=== PATIENT | female | born 1930 | race Caucasian/White ===

== ENCOUNTER 2017-01-07 16:49 | Inpatient (IN) ==
[2017-01-07] MEDS ORDERED: ALBUTEROL 2.5 MG/3 ML NEB RESP TX STA (17:17)
[2017-01-07] MEDS ORDERED: PANTOPRAZOLE 40 MG VIAL IV STA (17:19)
[2017-01-07] MEDS ORDERED: FUROSEMIDE 100 MG/10 ML VIAL IV STA (17:19)
[2017-01-07] MEDS ORDERED: methylPREDNISolone SOD SUC 125 MG/2 ML VIAL IV STA (17:19)
[2017-01-07] MEDS ORDERED: CLINDAMYCIN INJ 600 MG in PREMIX 1 EACH IV STA ×2 (17:19→18:36)
[2017-01-07] MEDS ORDERED: SODIUM CHLORIDE 0.9% 500 ML IV STA (17:19)
[2017-01-07] MEDS ORDERED: ONDANSETRON 4 MG/2 ML VIAL IV STA (17:19)
[2017-01-07 17:27] LABS: Basophils # 0.1 10*3/uL (0.0-0.2); Basophils % 0.9 % (0.0-0.8); Eosinophils # 0.7 10*3/uL (0.0-0.87); Eosinophils % 8.2 % (0.00-10.9); Hematocrit 37.9 VOL% (35.7-47.0); Hemoglobin 11.7 GM/DL (12.0-16.0); Immature Granulocytes % 0.7 %; Immature Granulocytes Absolute 0.06 #; Lymphocytes # 3.8 10*3/uL (1.4-4.0); Lymphocytes % 46.4 % (21.3-54.2); Mean Corpuscular HGB Conc 30.9 GM/DL (32-36); Mean Corpuscular Hemoglobin 30 PG (27-34); Mean Corpuscular Volume 96.4 FL (87-102); Mean Platelet Volume 11.5 FL (9.6-12.0); Monocytes # 0.4 10*3/uL (0.11-0.8); Monocytes % 4.8 % (1.7-12.7); Neutrophils # 3.2 10*3/uL (1.4-7.4); Platelet Count 268 T/CUMM (130-400); Red Blood Count 3.93 MC/CUMM (3.8-5.5); Red Cell Distribution Width 13.8 % (9.3-17.3); White Blood Count 8.1 T/CUMM (4-12)
[2017-01-07] MEDS ORDERED: ALBUTEROL 2.5 MG/3 ML NEB RESP TX SCH (17:30)
[2017-01-07 17:32] LABS: Allen Test Positive
[2017-01-07 17:33] LABS: PT Patient Result 10.8 SECS
[2017-01-07 17:35] LABS: ABG Base Excess -5.2 MMOL/L (-2.5-2.5); ABG HCO3 20.1 MMOL/L (20-26); ABG Oxygen Saturation 98.9 % (95-100); ABG TCO2 27.3 MMOL/L (23-27)
[2017-01-07 17:44] LABS: Alanine Aminotransferase 46 U/L (13-56); Albumin 3.3 G/DL (3.4-5.0); Alkaline Phosphatase 117 U/L (45-117); Aspartate Amino Transferase 96 U/L (0-37); Bilirubin,Total < 0.39 MG/DL (0.2-1.0); Blood Urea Nitrogen 20 MG/DL (7-18); Glucose 234 MG/DL (74-106); Magnesium 2.2 MG/DL (1.8-2.4); Osmolality,Calculated 291.3 MOS/KG (273-304); Potassium 5.4 MMOL/L (3.5-5.1); Sodium 141 MMOL/L (136-145); Total Protein 6.9 G/DL (6.4-8.3)
[2017-01-07 17:46] LABS: Troponin I Only 0.048 NG/ML (0.00-0.045)
[2017-01-07 17:49] LABS: ABG PH 7.063 (7.35-7.45)
[2017-01-07] MEDS ORDERED: SODIUM BICARBONATE 50 MEQ/50 ML VIAL IV STA (17:49)
[2017-01-07] MEDS ORDERED: SODIUM BICARBONATE 50 MEQ/50 ML SYRINGE IV ONE (17:53)
[2017-01-07] MEDS ORDERED: PANTOPRAZOLE 40 MG VIAL IV ONE (18:05)
[2017-01-07] MEDS ORDERED: FUROSEMIDE 40 MG/4 ML VIAL ONE (18:05)
[2017-01-07] MEDS ORDERED: MORPHINE 2 MG/1 ML SYRINGE IV PRN (18:20)
[2017-01-07] MEDS ORDERED: ACETAMINOPHEN 325 MG TABLET PO PRN (18:20)
[2017-01-07] MEDS ORDERED: ONDANSETRON 4 MG/2 ML VIAL IV PRN (18:20)
[2017-01-07 20:11] LABS: Apearance,Urine Slightly Hazy (Clear); Bilirubin,Urine Negative (Negative); Blood, Urine Small mg/dL (Negative); Glucose,Urine (UA) 50 mg/dL (Negative); Hyaline Casts,Urine 4 /LPF (0-3); Ketones,Urine Negative (Negative); Mucus,Urine Occasional /LPF (Occasional); Nitrite,Urine Negative (Negative); Protein,Urine 100 MG/DL; RBC,Urine 4 /HPF (0-4); Squamous Epithelial Cell,Urine Occasional /HPF (0-10); Urine Color Yellow (Yellow); Urine Specific Gravity 1.013 (1.001-1.035); Urine Urobilinogen < 2.0 EU/DL (0.2-1.0); WBC,Urine 12 /HPF (0-6)
[2017-01-07] MEDS: BUDESONIDE 0.5 MG/2 ML NEB RESP TX SCH (21:00)
[2017-01-07] MEDS ORDERED: LEVOFLOXACIN INJ 500 MG in PREMIX 1 EACH IV ONE (21:00)
[2017-01-07] MEDS: ALBUTEROL/IPRATROPIUM 3 ML NEB RESP TX SCH (21:00)
[2017-01-07] MEDS: SODIUM CHLORIDE 0.9% 1,000 ML IV SCH (21:06)
[2017-01-07] MEDS: VANCOMYCIN INJ 1,000 MG in SODIUM CHLORIDE 0.9% 250 ML IV SCH (21:07)
[2017-01-08] MEDS: ALBUTEROL 1.25 MG/3 ML NEB RESP TX SCH ×2 (00:43→07:49)
[2017-01-08] MEDS: ALBUTEROL/IPRATROPIUM 3 ML NEB RESP TX SCH ×4 (00:44→19:11)
[2017-01-08] MEDS: CLINDAMYCIN INJ 600 MG in PREMIX 1 EACH IV SCH ×4 (03:26→21:20)
[2017-01-08] MEDS ORDERED: INFLUENZA VIRUS VACCINE 0.5 ML SYRINGE IM ONE (05:47)
[2017-01-08] MEDS: BUDESONIDE 0.5 MG/2 ML NEB RESP TX SCH ×2 (07:07→19:12)
[2017-01-08] MEDS: LORazepam 2 MG/1 ML VIAL IV PRN (10:01)
[2017-01-08] MEDS: VANCOMYCIN INJ 1,000 MG in SODIUM CHLORIDE 0.9% 250 ML IV SCH (10:09)
[2017-01-08] MEDS ORDERED: ALBUTEROL/IPRATROPIUM 3 ML NEB RESP TX ONE (11:35)
[2017-01-08] MEDS ORDERED: MORPHINE 2 MG/1 ML SYRINGE IV PRN (11:46)
[2017-01-08] MEDS: MORPHINE 2 MG/1 ML SYRINGE IV PRN ×2 (12:00→12:25)
[2017-01-08] MEDS ORDERED: ACETAMINOPHEN 500 MG TABLET PO PRN (14:10)
[2017-01-08] MEDS: ALPRAZolam 0.5 MG TABLET PO PRN (16:24)
[2017-01-08] MEDS: DORZOLAMIDE 2% OPH SOLN 10 ML BOTTLE BOTH EYES SCH (21:25)
[2017-01-08] MEDS: LEVOFLOXACIN INJ 250 MG in PREMIX 1 EACH IV SCH (22:55)
[2017-01-08] MEDS: SODIUM CHLORIDE 0.9% 1,000 ML IV SCH ×2 (22:55→23:10)
[2017-01-09] MEDS: ALBUTEROL/IPRATROPIUM 3 ML NEB RESP TX SCH ×4 (00:59→19:20)
[2017-01-09] MEDS: BUDESONIDE 0.5 MG/2 ML NEB RESP TX SCH ×2 (07:11→19:21)
[2017-01-09] MEDS ORDERED: NON-FORMULARY MEDICATION (Umeclidinium Brm/Vilanterol Tr [Anoro Ellipta] 1 PUFF) INH SCH (09:00)
[2017-01-09] MEDS ORDERED: CHLORPHENIRAMINE MALEATE PO SCH (09:00)
[2017-01-09 09:55] LABS: Calcium 7.6 MG/DL (8.5-10.1); Magnesium 1.7 MG/DL (1.8-2.4); Osmolality,Calculated 291.8 MOS/KG (273-304); Potassium 3.6 MMOL/L (3.5-5.1)
[2017-01-09 10:01] LABS: Basophils % 0.4 % (0.0-0.8); Eosinophils % 0.2 % (0.00-10.9); Hematocrit 30.6 VOL% (35.7-47.0); Hemoglobin 9.8 GM/DL (12.0-16.0); Immature Granulocytes % 0.4 %; Immature Granulocytes Absolute 0.04 #; Lymphocytes # 1.6 10*3/uL (1.4-4.0); Mean Corpuscular Hemoglobin 31 PG (27-34); Mean Corpuscular Volume 95.3 FL (87-102); Mean Platelet Volume 11.5 FL (9.6-12.0); Monocytes # 0.9 10*3/uL (0.11-0.8); Monocytes % 8.8 % (1.7-12.7); Neutrophils # 7.1 10*3/uL (1.4-7.4); Neutrophils % 73.2 % (38.7-73.9); Platelet Count 171 T/CUMM (130-400); Red Blood Count 3.21 MC/CUMM (3.8-5.5); Red Cell Distribution Width 14.1 % (9.3-17.3); White Blood Count 9.7 T/CUMM (4-12)
[2017-01-09 10:04] LABS: ABG Base Excess 6.2 MMOL/L (-2.5-2.5); ABG Oxygen Saturation 96.4 % (95-100); ABG PCO2 51.4 MM HG (35-48); ABG PH 7.402 (7.35-7.45); ABG PO2 78.2 MM HG (80-95); ABG TCO2 29.5 MMOL/L (23-27)
[2017-01-09] MEDS: CLINDAMYCIN INJ 600 MG in PREMIX 1 EACH IV SCH ×3 (10:29→23:26)
[2017-01-09] MEDS: CALCIUM (CARBONATE)/VITAMIN D 600 MG-400 UNIT TABLET PO SCH (10:29)
[2017-01-09] MEDS: FLUTICASONE 50 MCG NASAL SPRAY 16 GM BOTTLE BOTH NARES SCH (10:30)
[2017-01-09] MEDS: BISACODYL 5 MG TABLET PO SCH (10:30)
[2017-01-09] MEDS: MULTIVITAMIN (CENTRUM) TABLET PO SCH (10:30)
[2017-01-09] MEDS: MONTELUKAST 10 MG TABLET PO SCH (10:30)
[2017-01-09] MEDS: CITALOPRAM 20 MG TABLET PO SCH (10:30)
[2017-01-09] MEDS: LORATADINE 10 MG TABLET PO SCH (10:30)
[2017-01-09] MEDS: SODIUM CHLORIDE 0.9% 1,000 ML IV SCH (10:31)
[2017-01-09] MEDS: DORZOLAMIDE 2% OPH SOLN 10 ML BOTTLE BOTH EYES SCH ×2 (10:31→22:02)
[2017-01-09] MEDS: LORazepam 2 MG/1 ML VIAL IV PRN ×2 (14:05→17:35)
[2017-01-09] MEDS: methylPREDNISolone SOD SUC 40 MG/1 ML VIAL IV SCH (15:21)
[2017-01-09] MEDS ORDERED: VANCOMYCIN INJ 1,000 MG in SODIUM CHLORIDE 0.9% 250 ML IV SCH (16:00)
[2017-01-09] MEDS: LEVOFLOXACIN INJ 250 MG in PREMIX 1 EACH IV SCH (22:01)
[2017-01-09] MEDS: ACETAMINOPHEN 325 MG TABLET PO PRN (22:38)
[2017-01-10] MEDS: ALBUTEROL/IPRATROPIUM 3 ML NEB RESP TX SCH ×4 (00:11→19:35)
[2017-01-10] MEDS: SODIUM CHLORIDE 0.9% 1,000 ML IV SCH (00:24)
[2017-01-10] MEDS: methylPREDNISolone SOD SUC 40 MG/1 ML VIAL IV SCH ×3 (00:53→16:35)
[2017-01-10] MEDS: LORazepam 2 MG/1 ML VIAL IV PRN ×2 (07:26→21:44)
[2017-01-10] MEDS: CLINDAMYCIN INJ 600 MG in PREMIX 1 EACH IV SCH ×2 (07:49→16:39)
[2017-01-10] MEDS: BUDESONIDE 0.5 MG/2 ML NEB RESP TX SCH ×2 (08:01→19:35)
[2017-01-10] MEDS: CITALOPRAM 20 MG TABLET PO SCH (09:15)
[2017-01-10] MEDS: MULTIVITAMIN (CENTRUM) TABLET PO SCH (09:15)
[2017-01-10] MEDS: MONTELUKAST 10 MG TABLET PO SCH (09:15)
[2017-01-10] MEDS: BISACODYL 5 MG TABLET PO SCH (09:15)
[2017-01-10] MEDS: LORATADINE 10 MG TABLET PO SCH (09:16)
[2017-01-10] MEDS: DORZOLAMIDE 2% OPH SOLN 10 ML BOTTLE BOTH EYES SCH ×2 (09:17→21:54)
[2017-01-10] MEDS: FLUTICASONE 50 MCG NASAL SPRAY 16 GM BOTTLE BOTH NARES SCH (09:17)
[2017-01-10] MEDS: CALCIUM (CARBONATE)/VITAMIN D 600 MG-400 UNIT TABLET PO SCH (09:17)
[2017-01-10] MEDS: ACETAMINOPHEN 325 MG TABLET PO PRN ×2 (14:01→21:48)
[2017-01-10] MEDS: LEVOFLOXACIN INJ 250 MG in PREMIX 1 EACH IV SCH (21:50)
[2017-01-11] MEDS: ALBUTEROL/IPRATROPIUM 3 ML NEB RESP TX SCH ×6 (00:43→23:48)
[2017-01-11] MEDS: CLINDAMYCIN INJ 600 MG in PREMIX 1 EACH IV SCH ×3 (01:47→16:17)
[2017-01-11] MEDS: methylPREDNISolone SOD SUC 40 MG/1 ML VIAL IV SCH ×3 (01:49→16:16)
[2017-01-11] MEDS: LORazepam 2 MG/1 ML VIAL IV PRN ×3 (01:51→16:33)
[2017-01-11] MEDS: BUDESONIDE 0.5 MG/2 ML NEB RESP TX SCH ×2 (07:38→19:51)
[2017-01-11] MEDS: BISACODYL 5 MG TABLET PO SCH (10:02)
[2017-01-11] MEDS: CITALOPRAM 20 MG TABLET PO SCH (10:02)
[2017-01-11] MEDS: CALCIUM (CARBONATE)/VITAMIN D 600 MG-400 UNIT TABLET PO SCH (10:02)
[2017-01-11] MEDS: MULTIVITAMIN (CENTRUM) TABLET PO SCH (10:03)
[2017-01-11] MEDS: MONTELUKAST 10 MG TABLET PO SCH (10:03)
[2017-01-11] MEDS: LORATADINE 10 MG TABLET PO SCH (10:03)
[2017-01-11] MEDS: DORZOLAMIDE 2% OPH SOLN 10 ML BOTTLE BOTH EYES SCH ×2 (10:12→23:13)
[2017-01-11] MEDS: FLUTICASONE 50 MCG NASAL SPRAY 16 GM BOTTLE BOTH NARES SCH (10:12)
[2017-01-11] MEDS: THEOPHYLLINE ER (24 HR) 400 MG CAPSULE PO SCH (14:17)
[2017-01-11] MEDS: LEVOFLOXACIN INJ 250 MG in PREMIX 1 EACH IV SCH (23:13)
[2017-01-12] MEDS: methylPREDNISolone SOD SUC 40 MG/1 ML VIAL IV SCH ×3 (00:49→18:27)
[2017-01-12] MEDS: CLINDAMYCIN INJ 600 MG in PREMIX 1 EACH IV SCH ×3 (00:50→16:42)
[2017-01-12] MEDS: ALBUTEROL/IPRATROPIUM 3 ML NEB RESP TX SCH ×6 (02:36→23:34)
[2017-01-12] MEDS: BUDESONIDE 0.5 MG/2 ML NEB RESP TX SCH ×2 (07:37→19:32)
[2017-01-12] MEDS ORDERED: TUBERCULIN SKIN TEST 0.1 ML SYRINGE INTRADERM ONE (10:00)
[2017-01-12] MEDS: CALCIUM (CARBONATE)/VITAMIN D 600 MG-400 UNIT TABLET PO SCH (10:16)
[2017-01-12] MEDS: MULTIVITAMIN (CENTRUM) TABLET PO SCH (10:16)
[2017-01-12] MEDS: THEOPHYLLINE ER (24 HR) 400 MG CAPSULE PO SCH (10:16)
[2017-01-12] MEDS: MONTELUKAST 10 MG TABLET PO SCH (10:16)
[2017-01-12] MEDS: LORATADINE 10 MG TABLET PO SCH (10:16)
[2017-01-12] MEDS: CITALOPRAM 20 MG TABLET PO SCH (10:16)
[2017-01-12] MEDS: FLUTICASONE 50 MCG NASAL SPRAY 16 GM BOTTLE BOTH NARES SCH (10:17)
[2017-01-12] MEDS: BISACODYL 5 MG TABLET PO SCH (10:17)
[2017-01-12] MEDS: DORZOLAMIDE 2% OPH SOLN 10 ML BOTTLE BOTH EYES SCH ×2 (10:17→20:26)
[2017-01-12] MEDS: LEVOFLOXACIN 500 MG TABLET PO SCH (15:49)
[2017-01-12] MEDS: ALPRAZolam 0.5 MG TABLET PO PRN (20:27)
[2017-01-12] MEDS: diphenhydrAMINE CAP 25 MG CAPSULE PO PRN (23:40)
[2017-01-13] MEDS: ALBUTEROL/IPRATROPIUM 3 ML NEB RESP TX SCH ×6 (03:04→23:07)
[2017-01-13] MEDS: CLINDAMYCIN 300 MG CAPSULE PO SCH ×4 (06:10→21:31)
[2017-01-13] MEDS: ALPRAZolam 0.5 MG TABLET PO PRN ×3 (06:42→20:58)
[2017-01-13] MEDS: BUDESONIDE 0.5 MG/2 ML NEB RESP TX SCH ×2 (07:13→19:04)
[2017-01-13] MEDS ORDERED: SODIUM PHOSPHATE ENEMA 133 ML BOTTLE RECTAL PRN (09:05)
[2017-01-13] MEDS: predniSONE 20 MG TABLET PO SCH (10:38)
[2017-01-13] MEDS: MONTELUKAST 10 MG TABLET PO SCH (10:38)
[2017-01-13] MEDS: CALCIUM (CARBONATE)/VITAMIN D 600 MG-400 UNIT TABLET PO SCH (10:38)
[2017-01-13] MEDS: DORZOLAMIDE 2% OPH SOLN 10 ML BOTTLE BOTH EYES SCH ×2 (10:39→20:58)
[2017-01-13] MEDS: THEOPHYLLINE ER (24 HR) 400 MG CAPSULE PO SCH (10:39)
[2017-01-13] MEDS: LORATADINE 10 MG TABLET PO SCH (10:39)
[2017-01-13] MEDS: FLUTICASONE 50 MCG NASAL SPRAY 16 GM BOTTLE BOTH NARES SCH (10:39)
[2017-01-13] MEDS: BISACODYL 5 MG TABLET PO SCH (10:39)
[2017-01-13] MEDS: MULTIVITAMIN (CENTRUM) TABLET PO SCH (10:39)
[2017-01-13] MEDS: LEVOFLOXACIN 500 MG TABLET PO SCH (10:39)
[2017-01-13] MEDS: CITALOPRAM 20 MG TABLET PO SCH (10:39)
[2017-01-13] MEDS ORDERED: MAGNESIUM HYDROXIDE SUSP 30 ML UDCUP PO PRN (11:33)
[2017-01-13] MEDS ORDERED: BISACODYL 10 MG SUPP RECTAL PRN (11:33)
[2017-01-13] MEDS ORDERED: BISACODYL 10 MG SUPP RECTAL ONE (12:00)
[2017-01-13] MEDS: diphenhydrAMINE CAP 25 MG CAPSULE PO PRN (20:58)
[2017-01-14] MEDS: ALBUTEROL/IPRATROPIUM 3 ML NEB RESP TX SCH ×6 (03:35→23:26)
[2017-01-14] MEDS: BUDESONIDE 0.5 MG/2 ML NEB RESP TX SCH ×2 (06:50→19:22)
[2017-01-14 07:58] LABS: Calcium 8.3 MG/DL (8.5-10.1); Potassium 3.5 MMOL/L (3.5-5.1)
[2017-01-14] MEDS: BISACODYL 5 MG TABLET PO SCH (08:54)
[2017-01-14] MEDS: ACETAMINOPHEN 325 MG TABLET PO PRN (08:55)
[2017-01-14] MEDS: predniSONE 20 MG TABLET PO SCH (08:55)
[2017-01-14] MEDS: CITALOPRAM 20 MG TABLET PO SCH (08:55)
[2017-01-14] MEDS: THEOPHYLLINE ER (24 HR) 400 MG CAPSULE PO SCH (08:55)
[2017-01-14] MEDS: LORATADINE 10 MG TABLET PO SCH (08:55)
[2017-01-14] MEDS: CLINDAMYCIN 300 MG CAPSULE PO SCH ×3 (08:55→21:30)
[2017-01-14] MEDS: MULTIVITAMIN (CENTRUM) TABLET PO SCH (08:55)
[2017-01-14] MEDS: CALCIUM (CARBONATE)/VITAMIN D 600 MG-400 UNIT TABLET PO SCH (08:55)
[2017-01-14] MEDS: MONTELUKAST 10 MG TABLET PO SCH (08:56)
[2017-01-14] MEDS: LEVOFLOXACIN 500 MG TABLET PO SCH (08:56)
[2017-01-14] MEDS: FLUTICASONE 50 MCG NASAL SPRAY 16 GM BOTTLE BOTH NARES SCH (09:02)
[2017-01-14] MEDS: DORZOLAMIDE 2% OPH SOLN 10 ML BOTTLE BOTH EYES SCH ×2 (09:02→20:58)
[2017-01-14] MEDS ORDERED: FUROSEMIDE 20 MG/2 ML VIAL IV ONE (12:27)
[2017-01-14] MEDS ORDERED: FUROSEMIDE 20 MG TABLET PO ONE (16:19)
[2017-01-14] MEDS: diphenhydrAMINE CAP 25 MG CAPSULE PO PRN (20:57)
[2017-01-14] MEDS: ALPRAZolam 0.5 MG TABLET PO PRN (20:58)
[2017-01-15] MEDS: ALBUTEROL/IPRATROPIUM 3 ML NEB RESP TX SCH ×3 (03:36→10:43)
[2017-01-15 04:40] LABS: Magnesium 1.9 MG/DL (1.8-2.4); Osmolality,Calculated 285.1 MOS/KG (273-304); Potassium 3.4 MMOL/L (3.5-5.1)
[2017-01-15] MEDS: CLINDAMYCIN 300 MG CAPSULE PO SCH (07:08)
[2017-01-15] MEDS: BUDESONIDE 0.5 MG/2 ML NEB RESP TX SCH (07:10)
[2017-01-15] MEDS ORDERED: FLUCONAZOLE 100 MG TABLET PO SCH (07:30)
[2017-01-15] MEDS: LEVOFLOXACIN 500 MG TABLET PO SCH (09:08)
[2017-01-15] MEDS: predniSONE 20 MG TABLET PO SCH (09:08)
[2017-01-15] MEDS: LORATADINE 10 MG TABLET PO SCH (09:08)
[2017-01-15] MEDS: MONTELUKAST 10 MG TABLET PO SCH (09:08)
[2017-01-15] MEDS: BISACODYL 5 MG TABLET PO SCH (09:08)
[2017-01-15] MEDS: CITALOPRAM 20 MG TABLET PO SCH (09:08)
[2017-01-15] MEDS: CALCIUM (CARBONATE)/VITAMIN D 600 MG-400 UNIT TABLET PO SCH (09:08)
[2017-01-15] MEDS: MULTIVITAMIN (CENTRUM) TABLET PO SCH (09:08)
[2017-01-15] MEDS: FLUTICASONE 50 MCG NASAL SPRAY 16 GM BOTTLE BOTH NARES SCH (09:09)
[2017-01-15] MEDS: THEOPHYLLINE ER (24 HR) 400 MG CAPSULE PO SCH (09:09)
[2017-01-15] MEDS: DORZOLAMIDE 2% OPH SOLN 10 ML BOTTLE BOTH EYES SCH (09:15)
[2017-01-15 12:10] VITALS: BP 114/53
== END 2017-01-15 15:01 | DRG 189 ==
LOC: EDBD → EDUNIT# → N.ED 16:49 → N.EDINP 17:52 → SUATTDRO 17:52 → N.2E 19:06
PROVIDERS: ADMIT Family Medicine; ATTEND Hospitalist

== ENCOUNTER 2018-02-07 06:00 | Inpatient (IN) ==
[2018-02-07] MEDS ORDERED: methylPREDNISolone SOD SUC 125 MG/2 ML VIAL IV STA (06:19)
[2018-02-07] MEDS ORDERED: ALBUTEROL 2.5 MG/3 ML NEB RESP TX STA ×2 (06:20→07:37)
[2018-02-07 06:31] LABS: Basophils # 0.1 10*3/uL (0.0-0.2); Basophils % 0.7 % (0.0-0.8); Eosinophils # 0.5 10*3/uL (0.0-0.87); Eosinophils % 7.1 % (0.00-10.9); Hematocrit 33.8 VOL% (35.7-47.0); Immature Granulocytes % 0.3 %; Immature Granulocytes Absolute 0.02 #; Lymphocytes # 1.1 10*3/uL (1.4-4.0); Mean Corpuscular HGB Conc 29.6 GM/DL (32-36); Mean Corpuscular Hemoglobin 29 PG (27-34); Mean Corpuscular Volume 96.8 FL (87-102); Mean Platelet Volume 11.1 FL (9.6-12.0); Monocytes # 0.4 10*3/uL (0.11-0.8); Neutrophils # 5.2 10*3/uL (1.4-7.4); Neutrophils % 70.9 % (38.7-73.9); Platelet Count 206 T/CUMM (130-400); Red Blood Count 3.49 MC/CUMM (3.8-5.5); Red Cell Distribution Width 14.2 % (9.3-17.3); White Blood Count 7.3 T/CUMM (4-12)
[2018-02-07 06:59] LABS: Albumin 3.3 G/DL (3.4-5.0); Bilirubin,Total 0.5 MG/DL (0.2-1.0); Calcium 8.5 MG/DL (8.5-10.1); Osmolality,Calculated 289.8 MOS/KG (273-304); Potassium 4.1 MMOL/L (3.5-5.1); Total Protein 7.3 G/DL (6.4-8.3)
[2018-02-07 08:42] LABS: Apearance,Urine Clear (Clear); Bilirubin,Urine Negative (Negative); Glucose,Urine (UA) Negative (Negative); Ketones,Urine Negative (Negative); Nitrite,Urine Negative (Negative); Protein,Urine Negative; Urine Color Yellow (Yellow)
[2018-02-07 08:43] LABS: Blood, Urine Negative (Negative); Urine Urobilinogen < 2.0 EU/DL (0.2-1.0)
[2018-02-07 08:44] LABS: Hyaline Casts,Urine 1 /LPF (0-3); RBC,Urine <1 /HPF (0-4); WBC,Urine <1 /HPF (0-6)
[2018-02-07] MEDS ORDERED: BISACODYL 5 MG TABLET PO PRN (09:28)
[2018-02-07] MEDS ORDERED: ONDANSETRON 4 MG/2 ML VIAL IV PRN (09:28)
[2018-02-07] MEDS ORDERED: LACTULOSE 20 GM/30 ML UDCUP PO PRN (09:28)
[2018-02-07] MEDS: DOXYCYCLINE HYCLATE 100 MG CAPSULE PO SCH ×2 (12:00→21:01)
[2018-02-07] MEDS ORDERED: ALBUTEROL/IPRATROPIUM 3 ML NEB RESP TX SCH (13:00)
[2018-02-07] MEDS: methylPREDNISolone SOD SUC 40 MG/1 ML VIAL IV SCH ×2 (14:36→23:22)
[2018-02-07] MEDS: ACETAMINOPHEN 325 MG TABLET PO PRN ×2 (14:36→21:00)
[2018-02-07] MEDS ORDERED: KETOROLAC 10 MG TABLET PO PRN (15:28)
[2018-02-07] MEDS ORDERED: MAGNESIUM HYDROXIDE SUSP 30 ML UDCUP PO PRN (15:28)
[2018-02-07] MEDS ORDERED: METHOCARBAMOL 500 MG TABLET PO PRN (15:28)
[2018-02-07] MEDS ORDERED: ONDANSETRON 4 MG TABLET PO SCH (15:30)
[2018-02-07] MEDS: ALPRAZolam 0.5 MG TABLET PO PRN (16:14)
[2018-02-07] MEDS: ALBUTEROL/IPRATROPIUM 3 ML NEB RESP TX PRN (16:54)
[2018-02-07] MEDS: ALBUTEROL/IPRATROPIUM 3 ML NEB RESP TX SCH (19:25)
[2018-02-07] MEDS: BUDESONIDE 0.5 MG/2 ML NEB RESP TX SCH (19:25)
[2018-02-07] MEDS ORDERED: DORZOLAMIDE 2% OPH SOLN 10 ML BOTTLE BOTH EYES SCH (21:00)
[2018-02-07] MEDS: traZODone 50 MG TABLET PO SCH (21:00)
[2018-02-07] MEDS: LACTULOSE 20 GM/30 ML UDCUP PO SCH (21:01)
[2018-02-08] MEDS: ALPRAZolam 0.5 MG TABLET PO PRN ×3 (00:47→21:08)
[2018-02-08] MEDS: ALBUTEROL/IPRATROPIUM 3 ML NEB RESP TX SCH ×4 (00:56→20:55)
[2018-02-08] MEDS: ACETAMINOPHEN 325 MG TABLET PO PRN ×3 (05:23→18:02)
[2018-02-08] MEDS: ALBUTEROL/IPRATROPIUM 3 ML NEB RESP TX PRN (05:25)
[2018-02-08 06:10] LABS: Calcium 8.7 MG/DL (8.5-10.1); Osmolality,Calculated 289.1 MOS/KG (273-304); Potassium 4.4 MMOL/L (3.5-5.1)
[2018-02-08] MEDS: methylPREDNISolone SOD SUC 40 MG/1 ML VIAL IV SCH ×2 (06:24→20:27)
[2018-02-08] MEDS: BUDESONIDE 0.5 MG/2 ML NEB RESP TX SCH ×2 (07:00→20:55)
[2018-02-08 07:11] LABS: Basophils % 0.2 % (0.0-0.8); Hemoglobin 9.3 GM/DL (12.0-16.0); Immature Granulocytes % 0.4 %; Immature Granulocytes Absolute 0.02 #; Lymphocytes # 0.6 10*3/uL (1.4-4.0); Lymphocytes % 10.6 % (21.3-54.2); Mean Corpuscular Hemoglobin 28 PG (27-34); Mean Corpuscular Volume 94.8 FL (87-102); Mean Platelet Volume 11.2 FL (9.6-12.0); Monocytes # 0.1 10*3/uL (0.11-0.8); Monocytes % 1.8 % (1.7-12.7); Neutrophils # 4.9 10*3/uL (1.4-7.4); Platelet Count 210 T/CUMM (130-400); Red Blood Count 3.27 MC/CUMM (3.8-5.5); Red Cell Distribution Width 14.1 % (9.3-17.3); White Blood Count 5.6 T/CUMM (4-12)
[2018-02-08] MEDS: PARoxetine 20 MG TABLET PO SCH (08:36)
[2018-02-08] MEDS: CALCIUM (CARBONATE)/VITAMIN D 600 MG-400 UNIT TABLET PO SCH (08:36)
[2018-02-08] MEDS: DOXYCYCLINE HYCLATE 100 MG CAPSULE PO SCH ×2 (08:36→21:08)
[2018-02-08] MEDS: MONTELUKAST 10 MG TABLET PO SCH (08:36)
[2018-02-08] MEDS: MULTIVITAMIN (CENTRUM) TABLET PO SCH (08:36)
[2018-02-08] MEDS: LACTULOSE 20 GM/30 ML UDCUP PO SCH ×2 (08:37→21:15)
[2018-02-08] MEDS: OXYBUTYNIN 5 MG TABLET PO SCH (08:37)
[2018-02-08] MEDS: PANTOPRAZOLE 40 MG TABLET PO SCH (08:37)
[2018-02-08] MEDS: BISACODYL 5 MG TABLET PO SCH (08:37)
[2018-02-08] MEDS: POLYETHYLENE GLYCOL POWDER 17 GM PACK PO SCH (08:37)
[2018-02-08] MEDS: CETIRIZINE 10 MG TABLET PO SCH (08:37)
[2018-02-08] MEDS: FLUTICASONE 50 MCG NASAL SPRAY 16 GM BOTTLE BOTH NARES SCH (08:38)
[2018-02-08] MEDS ORDERED: Umeclidinium Brm/Vilanterol Tr [Anoro Ellipta] 1 PUFF INH SCH (09:00)
[2018-02-08] MEDS ORDERED: SODIUM PHOSPHATE ENEMA 133 ML BOTTLE RECTAL ONE (11:00)
[2018-02-08] MEDS: busPIRone 5 MG TABLET PO SCH ×3 (12:28→21:08)
[2018-02-08] MEDS: CARVEDILOL 6.25 MG TABLET PO SCH (18:01)
[2018-02-08] MEDS: traZODone 50 MG TABLET PO SCH (21:08)
[2018-02-09] MEDS: ALBUTEROL/IPRATROPIUM 3 ML NEB RESP TX SCH ×4 (01:15→19:06)
[2018-02-09] MEDS: ALBUTEROL/IPRATROPIUM 3 ML NEB RESP TX PRN (04:49)
[2018-02-09 05:21] LABS: Basophils % 0.1 % (0.0-0.8); Hemoglobin 9.8 GM/DL (12.0-16.0); Immature Granulocytes % 0.4 %; Immature Granulocytes Absolute 0.04 #; Lymphocytes # 0.8 10*3/uL (1.4-4.0); Lymphocytes % 7.8 % (21.3-54.2); Mean Corpuscular HGB Conc 29.7 GM/DL (32-36); Mean Corpuscular Hemoglobin 29 PG (27-34); Mean Corpuscular Volume 96.2 FL (87-102); Mean Platelet Volume 11.2 FL (9.6-12.0); Monocytes # 0.3 10*3/uL (0.11-0.8); Monocytes % 2.8 % (1.7-12.7); Neutrophils % 88.9 % (38.7-73.9); Platelet Count 243 T/CUMM (130-400); Red Blood Count 3.43 MC/CUMM (3.8-5.5); Red Cell Distribution Width 14.2 % (9.3-17.3); White Blood Count 10.1 T/CUMM (4-12)
[2018-02-09 05:33] LABS: Osmolality,Calculated 290.1 MOS/KG (273-304); Potassium 4.8 MMOL/L (3.5-5.1)
[2018-02-09] MEDS: BUDESONIDE 0.5 MG/2 ML NEB RESP TX SCH ×2 (07:14→19:07)
[2018-02-09] MEDS: ALPRAZolam 0.5 MG TABLET PO PRN (08:32)
[2018-02-09] MEDS: busPIRone 5 MG TABLET PO SCH ×2 (08:32→20:45)
[2018-02-09] MEDS: CALCIUM (CARBONATE)/VITAMIN D 600 MG-400 UNIT TABLET PO SCH (08:32)
[2018-02-09] MEDS: MONTELUKAST 10 MG TABLET PO SCH (08:32)
[2018-02-09] MEDS: MULTIVITAMIN (CENTRUM) TABLET PO SCH (08:32)
[2018-02-09] MEDS: DOXYCYCLINE HYCLATE 100 MG CAPSULE PO SCH ×2 (08:32→20:45)
[2018-02-09] MEDS: PARoxetine 20 MG TABLET PO SCH (08:32)
[2018-02-09] MEDS: PANTOPRAZOLE 40 MG TABLET PO SCH (08:33)
[2018-02-09] MEDS: BISACODYL 5 MG TABLET PO SCH (08:33)
[2018-02-09] MEDS: LACTULOSE 20 GM/30 ML UDCUP PO SCH ×2 (08:34→20:45)
[2018-02-09] MEDS: CETIRIZINE 10 MG TABLET PO SCH (08:34)
[2018-02-09] MEDS: CARVEDILOL 6.25 MG TABLET PO SCH (08:34)
[2018-02-09] MEDS: POLYETHYLENE GLYCOL POWDER 17 GM PACK PO SCH (08:34)
[2018-02-09] MEDS: OXYBUTYNIN 5 MG TABLET PO SCH (08:34)
[2018-02-09] MEDS: FLUTICASONE 50 MCG NASAL SPRAY 16 GM BOTTLE BOTH NARES SCH (08:35)
[2018-02-09] MEDS: methylPREDNISolone SOD SUC 40 MG/1 ML VIAL IV SCH ×2 (08:35→21:00)
[2018-02-09] MEDS: chlordiazePOXIDE 10 MG CAPSULE PO SCH ×2 (12:51→20:45)
[2018-02-09] MEDS: amLODIPine 2.5 MG TABLET PO SCH (12:51)
[2018-02-09] MEDS: traZODone 50 MG TABLET PO SCH (20:45)
[2018-02-10] MEDS: ALBUTEROL/IPRATROPIUM 3 ML NEB RESP TX SCH ×5 (00:35→19:38)
[2018-02-10] MEDS: BUDESONIDE 0.5 MG/2 ML NEB RESP TX SCH ×2 (07:40→19:38)
[2018-02-10] MEDS: FLUTICASONE 50 MCG NASAL SPRAY 16 GM BOTTLE BOTH NARES SCH (08:26)
[2018-02-10] MEDS: POLYETHYLENE GLYCOL POWDER 17 GM PACK PO SCH (08:27)
[2018-02-10] MEDS: LACTULOSE 20 GM/30 ML UDCUP PO SCH ×2 (08:27→20:35)
[2018-02-10] MEDS: busPIRone 5 MG TABLET PO SCH ×2 (08:28→20:34)
[2018-02-10] MEDS: BISACODYL 5 MG TABLET PO SCH (08:28)
[2018-02-10] MEDS: PARoxetine 20 MG TABLET PO SCH (08:28)
[2018-02-10] MEDS: MULTIVITAMIN (CENTRUM) TABLET PO SCH (08:28)
[2018-02-10] MEDS: MONTELUKAST 10 MG TABLET PO SCH (08:28)
[2018-02-10] MEDS: amLODIPine 2.5 MG TABLET PO SCH (08:28)
[2018-02-10] MEDS: CALCIUM (CARBONATE)/VITAMIN D 600 MG-400 UNIT TABLET PO SCH (08:28)
[2018-02-10] MEDS: PANTOPRAZOLE 40 MG TABLET PO SCH (08:28)
[2018-02-10] MEDS: DOXYCYCLINE HYCLATE 100 MG CAPSULE PO SCH ×2 (08:28→20:34)
[2018-02-10] MEDS: chlordiazePOXIDE 10 MG CAPSULE PO SCH ×2 (08:28→20:34)
[2018-02-10] MEDS: CETIRIZINE 10 MG TABLET PO SCH (08:28)
[2018-02-10] MEDS: methylPREDNISolone SOD SUC 40 MG/1 ML VIAL IV SCH ×2 (08:29→22:00)
[2018-02-10] MEDS: ALPRAZolam 0.5 MG TABLET PO PRN (11:46)
[2018-02-10] MEDS ORDERED: TUBERCULIN SKIN TEST 0.1 ML SYRINGE INTRADERM ONE (19:00)
[2018-02-10] MEDS: traZODone 50 MG TABLET PO SCH (20:34)
[2018-02-11] MEDS: ALBUTEROL/IPRATROPIUM 3 ML NEB RESP TX SCH ×4 (01:13→19:52)
[2018-02-11] MEDS: BUDESONIDE 0.5 MG/2 ML NEB RESP TX SCH ×2 (07:38→20:15)
[2018-02-11] MEDS: MULTIVITAMIN (CENTRUM) TABLET PO SCH (09:30)
[2018-02-11] MEDS: amLODIPine 2.5 MG TABLET PO SCH (09:30)
[2018-02-11] MEDS: CETIRIZINE 10 MG TABLET PO SCH (09:31)
[2018-02-11] MEDS: PARoxetine 20 MG TABLET PO SCH (09:31)
[2018-02-11] MEDS: MONTELUKAST 10 MG TABLET PO SCH (09:33)
[2018-02-11] MEDS: PANTOPRAZOLE 40 MG TABLET PO SCH (09:33)
[2018-02-11] MEDS: CALCIUM (CARBONATE)/VITAMIN D 600 MG-400 UNIT TABLET PO SCH (09:33)
[2018-02-11] MEDS: DOXYCYCLINE HYCLATE 100 MG CAPSULE PO SCH ×2 (09:33→20:51)
[2018-02-11] MEDS: busPIRone 5 MG TABLET PO SCH ×2 (09:33→20:51)
[2018-02-11] MEDS: LACTULOSE 20 GM/30 ML UDCUP PO SCH ×2 (09:34→20:52)
[2018-02-11] MEDS: chlordiazePOXIDE 10 MG CAPSULE PO SCH (09:34)
[2018-02-11] MEDS: BISACODYL 5 MG TABLET PO SCH (09:34)
[2018-02-11] MEDS: POLYETHYLENE GLYCOL POWDER 17 GM PACK PO SCH (09:34)
[2018-02-11] MEDS: methylPREDNISolone SOD SUC 40 MG/1 ML VIAL IV SCH (09:34)
[2018-02-11] MEDS: FLUTICASONE 50 MCG NASAL SPRAY 16 GM BOTTLE BOTH NARES SCH (09:35)
[2018-02-11] MEDS ORDERED: ALPRAZolam 0.5 MG TABLET PO PRN (13:44)
[2018-02-11] MEDS ORDERED: amLODIPine 2.5 MG TABLET PO ONE (15:00)
[2018-02-11] MEDS: traZODone 50 MG TABLET PO SCH (20:51)
[2018-02-11] MEDS ORDERED: chlordiazePOXIDE 10 MG CAPSULE PO SCH (21:00)
[2018-02-12] MEDS: ALBUTEROL/IPRATROPIUM 3 ML NEB RESP TX SCH ×3 (02:15→12:30)
[2018-02-12] MEDS: BUDESONIDE 0.5 MG/2 ML NEB RESP TX SCH (07:16)
[2018-02-12] MEDS: ALBUTEROL/IPRATROPIUM 3 ML NEB RESP TX PRN (07:16)
[2018-02-12] MEDS: PARoxetine 20 MG TABLET PO SCH (08:55)
[2018-02-12] MEDS: MULTIVITAMIN (CENTRUM) TABLET PO SCH (08:55)
[2018-02-12] MEDS: CETIRIZINE 10 MG TABLET PO SCH (08:55)
[2018-02-12] MEDS: CALCIUM (CARBONATE)/VITAMIN D 600 MG-400 UNIT TABLET PO SCH (08:55)
[2018-02-12] MEDS: busPIRone 5 MG TABLET PO SCH (08:55)
[2018-02-12] MEDS: PANTOPRAZOLE 40 MG TABLET PO SCH (08:56)
[2018-02-12] MEDS: MONTELUKAST 10 MG TABLET PO SCH (08:56)
[2018-02-12] MEDS: DOXYCYCLINE HYCLATE 100 MG CAPSULE PO SCH (08:56)
[2018-02-12] MEDS: BISACODYL 5 MG TABLET PO SCH (08:56)
[2018-02-12] MEDS: ACETAMINOPHEN 325 MG TABLET PO PRN (08:56)
[2018-02-12] MEDS: POLYETHYLENE GLYCOL POWDER 17 GM PACK PO SCH (08:57)
[2018-02-12] MEDS: LACTULOSE 20 GM/30 ML UDCUP PO SCH (08:57)
[2018-02-12] MEDS: FLUTICASONE 50 MCG NASAL SPRAY 16 GM BOTTLE BOTH NARES SCH (08:58)
[2018-02-12] MEDS ORDERED: predniSONE 20 MG TABLET PO SCH (09:00)
[2018-02-12] MEDS ORDERED: amLODIPine 5 MG TABLET PO SCH (09:00)
[2018-02-12 11:43] VITALS: BP 146/71
== END 2018-02-12 14:24 | DRG 191 ==
LOC: EDBD → EDUNIT# → N.ED 06:00 → SUATTDRO 09:28 → N.EDINP 09:28 → N.2W 09:54 → N.2E 13:00
PROVIDERS: ADMIT Internal Medicine; ATTEND Internal Medicine

== ENCOUNTER 2018-03-30 15:20 | Inpatient (IN) ==
[2018-03-30] MEDS ORDERED: ONDANSETRON 4 MG/2 ML VIAL IV STA (15:44)
[2018-03-30] MEDS ORDERED: methylPREDNISolone SOD SUC 125 MG/2 ML VIAL IV STA (15:44)
[2018-03-30] MEDS ORDERED: ALBUTEROL 2.5 MG/3 ML NEB RESP TX SCH (16:00)
[2018-03-30 16:35] LABS: Basophils % 0.4 % (0.0-0.8); Eosinophils # 0.2 10*3/uL (0.0-0.87); Eosinophils % 3.1 % (0.00-10.9); Hematocrit 33.2 VOL% (35.7-47.0); Hemoglobin 10.1 GM/DL (12.0-16.0); Immature Granulocytes % 0.8 %; Immature Granulocytes Absolute 0.06 #; Lymphocytes # 1.3 10*3/uL (1.4-4.0); Lymphocytes % 18.2 % (21.3-54.2); Mean Corpuscular HGB Conc 30.4 GM/DL (32-36); Mean Corpuscular Hemoglobin 29 PG (27-34); Mean Corpuscular Volume 93.8 FL (87-102); Mean Platelet Volume 10.5 FL (9.6-12.0); Monocytes # 0.7 10*3/uL (0.11-0.8); Neutrophils % 68.5 % (38.7-73.9); Platelet Count 248 T/CUMM (130-400); Red Blood Count 3.54 MC/CUMM (3.8-5.5); Red Cell Distribution Width 14.3 % (9.3-17.3); White Blood Count 7.3 T/CUMM (4-12)
[2018-03-30 16:47] LABS: PT Patient Result 10.7 SECS; Partial Thromboplastin Time < 21.0 SECS (0-40)
[2018-03-30 16:54] LABS: Alanine Aminotransferase 16 U/L (13-56); Albumin 3.1 G/DL (3.4-5.0); Alkaline Phosphatase 86 U/L (45-117); Aspartate Amino Transferase 31 U/L (0-37); Blood Urea Nitrogen 16 MG/DL (7-18); Calcium 8.9 MG/DL (8.5-10.1); Glucose 94 MG/DL (74-106); Osmolality,Calculated 279.4 MOS/KG (273-304); Potassium 4.3 MMOL/L (3.5-5.1); Sodium 140 MMOL/L (136-145); Total Protein 7.1 G/DL (6.4-8.3)
[2018-03-30 16:57] LABS: Apearance,Urine Slightly Hazy (Clear); Bilirubin,Urine Negative (Negative); Blood, Urine Negative (Negative); Glucose,Urine (UA) Negative (Negative); Ketones,Urine Negative (Negative); Mucus,Urine Occasional /LPF (Occasional); Nitrite,Urine Negative (Negative); Protein,Urine Negative; RBC,Urine <1 /HPF (0-4); Urine Color Yellow (Yellow); Urine Specific Gravity 1.016 (1.001-1.035); Urine Urobilinogen < 2.0 EU/DL (0.2-1.0); WBC,Urine 1 /HPF (0-6)
[2018-03-30] MEDS ORDERED: METHOCARBAMOL INJ 1,000 MG in SODIUM CHLORIDE 0.9% 100 ML IV STA (16:59)
[2018-03-30] MEDS ORDERED: KETOROLAC 30 MG/1 ML VIAL IV STA (16:59)
[2018-03-30] MEDS ORDERED: METHOCARBAMOL 1,000 MG/10 ML VIAL ONE (17:23)
[2018-03-30] MEDS ORDERED: ONDANSETRON 4 MG/2 ML VIAL IV PRN (21:33)
[2018-03-30] MEDS ORDERED: ACETAMINOPHEN 325 MG TABLET PO PRN (21:33)
[2018-03-30] MEDS: SODIUM CHLORIDE 0.9% 1,000 ML IV SCH (21:54)
[2018-03-30 21:58] LABS: Thyroid Stimulating Hormone 4.66 uIU/ml (0.358-3.74)
[2018-03-30] MEDS: methylPREDNISolone SOD SUC 40 MG/1 ML VIAL IV SCH (22:13)
[2018-03-30] MEDS: MONTELUKAST 10 MG TABLET PO SCH (22:13)
[2018-03-31] MEDS: ALBUTEROL/IPRATROPIUM 3 ML NEB RESP TX SCH ×4 (00:20→19:10)
[2018-03-31] MEDS: BUDESONIDE/FORMOTEROL 160-4.5 INHALER 6 GM INH SCH ×3 (01:59→20:01)
[2018-03-31] MEDS: methylPREDNISolone SOD SUC 40 MG/1 ML VIAL IV SCH ×5 (03:59→23:27)
[2018-03-31 05:51] LABS: Basophils % 0.3 % (0.0-0.8); Hematocrit 29.4 VOL% (35.7-47.0); Hemoglobin 8.9 GM/DL (12.0-16.0); Immature Granulocytes % 0.5 %; Immature Granulocytes Absolute 0.04 #; Lymphocytes # 0.5 10*3/uL (1.4-4.0); Lymphocytes % 5.9 % (21.3-54.2); Mean Corpuscular HGB Conc 30.3 GM/DL (32-36); Mean Corpuscular Hemoglobin 28 PG (27-34); Mean Corpuscular Volume 93.3 FL (87-102); Monocytes # 0.2 10*3/uL (0.11-0.8); Monocytes % 2.7 % (1.7-12.7); Neutrophils # 7.1 10*3/uL (1.4-7.4); Neutrophils % 90.6 % (38.7-73.9); Platelet Count 240 T/CUMM (130-400); Red Blood Count 3.15 MC/CUMM (3.8-5.5); Red Cell Distribution Width 14.1 % (9.3-17.3); White Blood Count 7.8 T/CUMM (4-12)
[2018-03-31 06:06] LABS: Calcium 8.4 MG/DL (8.5-10.1); Osmolality,Calculated 285.3 MOS/KG (273-304); Potassium 4.5 MMOL/L (3.5-5.1)
[2018-03-31 06:11] LABS: Lymphocytes 4 % (20-55); Platelet Estimate Normal; Segmented Neutrophils 94 % (50-85); Total Cells Counted 100
[2018-03-31 06:12] LABS: Hypochromasia 2+
[2018-03-31] MEDS ORDERED: ALBUTEROL/IPRATROPIUM 3 ML NEB RESP TX ONE (09:37)
[2018-03-31] MEDS: CETIRIZINE 10 MG TABLET PO SCH (09:43)
[2018-03-31] MEDS: AZITHROMYCIN 250 MG TABLET PO SCH (09:43)
[2018-03-31] MEDS: PANTOPRAZOLE 40 MG TABLET PO SCH (09:43)
[2018-03-31] MEDS: PARoxetine 10 MG TABLET PO SCH (09:43)
[2018-03-31] MEDS: ENOXAPARIN 40 MG/0.4 ML SYRINGE SUBCUT SCH (09:48)
[2018-03-31] MEDS: LIDOCAINE 5% PATCH TRANSDERM SCH (09:49)
[2018-03-31] MEDS: LACTULOSE 20 GM/30 ML UDCUP PO SCH ×2 (09:49→16:53)
[2018-03-31] MEDS: busPIRone 5 MG TABLET PO SCH (14:26)
[2018-03-31] MEDS: SODIUM CHLORIDE 0.9% 1,000 ML IV SCH (16:53)
[2018-03-31] MEDS: ALBUTEROL 2.5 MG/3 ML NEB RESP TX PRN (17:00)
[2018-03-31] MEDS: CLORAZEPATE 3.75 MG TABLET PO SCH ×2 (17:18→20:02)
[2018-03-31] MEDS: BUDESONIDE 0.25 MG/2 ML NEB RESP TX SCH (19:10)
[2018-03-31] MEDS: MONTELUKAST 10 MG TABLET PO SCH (20:02)
[2018-04-01] MEDS: ALBUTEROL/IPRATROPIUM 3 ML NEB RESP TX SCH ×6 (00:59→23:59)
[2018-04-01] MEDS: methylPREDNISolone SOD SUC 40 MG/1 ML VIAL IV SCH ×4 (04:04→22:19)
[2018-04-01] MEDS: ALBUTEROL 2.5 MG/3 ML NEB RESP TX PRN (04:07)
[2018-04-01] MEDS ORDERED: CLORAZEPATE 3.75 MG TABLET PO ONE (04:47)
[2018-04-01] MEDS: BUDESONIDE 0.25 MG/2 ML NEB RESP TX SCH ×2 (07:56→18:58)
[2018-04-01] MEDS: PANTOPRAZOLE 40 MG TABLET PO SCH (08:34)
[2018-04-01] MEDS: CLORAZEPATE 3.75 MG TABLET PO SCH ×3 (08:34→22:18)
[2018-04-01] MEDS: AZITHROMYCIN 250 MG TABLET PO SCH (08:34)
[2018-04-01] MEDS: LACTULOSE 20 GM/30 ML UDCUP PO SCH ×2 (08:34→17:56)
[2018-04-01] MEDS: PARoxetine 10 MG TABLET PO SCH (08:34)
[2018-04-01] MEDS: ENOXAPARIN 40 MG/0.4 ML SYRINGE SUBCUT SCH (08:35)
[2018-04-01] MEDS: CETIRIZINE 10 MG TABLET PO SCH (08:35)
[2018-04-01] MEDS: LIDOCAINE 5% PATCH TRANSDERM SCH (08:41)
[2018-04-01] MEDS: BUDESONIDE/FORMOTEROL 160-4.5 INHALER 6 GM INH SCH ×2 (08:43→22:18)
[2018-04-01] MEDS ORDERED: MORPHINE 4 MG/1 ML VIAL IV ONE (09:45)
[2018-04-01] MEDS ORDERED: NON-FORMULARY MEDICATION (Umeclidinium Brm/Vilanterol Tr [Anoro Ellipta] 1 PUFF) INH SCH (13:30)
[2018-04-01] MEDS: busPIRone 5 MG TABLET PO SCH (14:19)
[2018-04-01] MEDS: SODIUM CHLORIDE 0.9% 1,000 ML IV SCH (14:22)
[2018-04-01] MEDS: MORPHINE 4 MG/1 ML VIAL IV PRN (15:13)
[2018-04-01] MEDS: POLYETHYLENE GLYCOL POWDER 17 GM PACK PO SCH (17:57)
[2018-04-01] MEDS: traZODone 50 MG TABLET PO SCH (22:18)
[2018-04-01] MEDS: MONTELUKAST 10 MG TABLET PO SCH (22:18)
[2018-04-02] MEDS: methylPREDNISolone SOD SUC 40 MG/1 ML VIAL IV SCH ×2 (04:08→16:33)
[2018-04-02 06:08] LABS: Basophils % 0.1 % (0.0-0.8); Hematocrit 30.4 VOL% (35.7-47.0); Hemoglobin 9.2 GM/DL (12.0-16.0); Immature Granulocytes % 0.9 %; Immature Granulocytes Absolute 0.08 #; Lymphocytes # 0.6 10*3/uL (1.4-4.0); Lymphocytes % 6.8 % (21.3-54.2); Mean Corpuscular HGB Conc 30.3 GM/DL (32-36); Mean Corpuscular Hemoglobin 28 PG (27-34); Mean Corpuscular Volume 93.8 FL (87-102); Mean Platelet Volume 10.3 FL (9.6-12.0); Monocytes # 0.2 10*3/uL (0.11-0.8); Monocytes % 2.7 % (1.7-12.7); Neutrophils # 7.9 10*3/uL (1.4-7.4); Neutrophils % 89.5 % (38.7-73.9); Platelet Count 252 T/CUMM (130-400); Red Blood Count 3.24 MC/CUMM (3.8-5.5); Red Cell Distribution Width 14.3 % (9.3-17.3); White Blood Count 8.9 T/CUMM (4-12)
[2018-04-02 06:27] LABS: Calcium 8.5 MG/DL (8.5-10.1); Osmolality,Calculated 289.1 MOS/KG (273-304); Potassium 4.5 MMOL/L (3.5-5.1)
[2018-04-02] MEDS ORDERED: ZIPRASIDONE 20 MG/1 ML VIAL IM ONE (06:33)
[2018-04-02] MEDS: ALBUTEROL/IPRATROPIUM 3 ML NEB RESP TX SCH ×4 (07:43→19:20)
[2018-04-02] MEDS: BUDESONIDE 0.25 MG/2 ML NEB RESP TX SCH ×2 (07:43→19:20)
[2018-04-02] MEDS: AZITHROMYCIN 250 MG TABLET PO SCH (09:52)
[2018-04-02] MEDS: LACTULOSE 20 GM/30 ML UDCUP PO SCH ×2 (09:52→16:33)
[2018-04-02] MEDS: CLORAZEPATE 3.75 MG TABLET PO SCH (09:52)
[2018-04-02] MEDS: PARoxetine 10 MG TABLET PO SCH (09:52)
[2018-04-02] MEDS: MULTIVITAMIN (CENTRUM) TABLET PO SCH (09:52)
[2018-04-02] MEDS: PANTOPRAZOLE 40 MG TABLET PO SCH (09:53)
[2018-04-02] MEDS: CETIRIZINE 10 MG TABLET PO SCH (09:53)
[2018-04-02] MEDS: LIDOCAINE 5% PATCH TRANSDERM SCH (09:53)
[2018-04-02] MEDS: BUDESONIDE/FORMOTEROL 160-4.5 INHALER 6 GM INH SCH ×2 (09:54→21:01)
[2018-04-02] MEDS: ENOXAPARIN 40 MG/0.4 ML SYRINGE SUBCUT SCH (09:54)
[2018-04-02] MEDS: SODIUM CHLORIDE 0.9% 1,000 ML IV SCH (10:27)
[2018-04-02] MEDS ORDERED: ALPRAZolam 0.25 MG TABLET PO ONE (11:16)
[2018-04-02 12:56] LABS: Amorphous Crystals,Urine Occasional /HPF (Few); Apearance,Urine CLOUDY (Clear); Bilirubin,Urine Negative (Negative); Blood, Urine Negative (Negative); Glucose,Urine (UA) Negative (Negative); Ketones,Urine Negative (Negative); Mucus,Urine Occasional /LPF (Occasional); Nitrite,Urine Positive (Negative); Protein,Urine 30 MG/DL; Squamous Epithelial Cell,Urine Occasional /HPF (0-10); Urine Color Yellow (Yellow); Urine Specific Gravity 1.016 (1.001-1.035); Urine Urobilinogen < 2.0 EU/DL (0.2-1.0); WBC,Urine 16 /HPF (0-6)
[2018-04-02] MEDS ORDERED: PHENAZOPYRIDINE 95 MG TABLET PO PRN (14:04)
[2018-04-02] MEDS: POLYETHYLENE GLYCOL POWDER 17 GM PACK PO SCH (16:33)
[2018-04-02] MEDS: NITROFURANTOIN MACRO/MONO 100 MG CAPSULE PO SCH ×2 (16:33→21:01)
[2018-04-02] MEDS: traZODone 50 MG TABLET PO SCH (21:01)
[2018-04-02] MEDS: MONTELUKAST 10 MG TABLET PO SCH (21:01)
[2018-04-03] MEDS: ALBUTEROL/IPRATROPIUM 3 ML NEB RESP TX SCH ×4 (00:40→19:49)
[2018-04-03] MEDS: methylPREDNISolone SOD SUC 40 MG/1 ML VIAL IV SCH (03:06)
[2018-04-03] MEDS: MORPHINE 4 MG/1 ML VIAL IV PRN ×2 (03:14→06:47)
[2018-04-03] MEDS: BUDESONIDE 0.25 MG/2 ML NEB RESP TX SCH ×2 (07:12→19:49)
[2018-04-03] MEDS: LACTULOSE 20 GM/30 ML UDCUP PO SCH ×2 (08:00→18:47)
[2018-04-03] MEDS: BUDESONIDE/FORMOTEROL 160-4.5 INHALER 6 GM INH SCH ×2 (09:00→21:10)
[2018-04-03] MEDS: NITROFURANTOIN MACRO/MONO 100 MG CAPSULE PO SCH ×2 (09:00→21:10)
[2018-04-03] MEDS ORDERED: ALBUTEROL/IPRATROPIUM 3 ML NEB RESP TX ONE ×2 (11:23→12:38)
[2018-04-03] MEDS ORDERED: PROPOFOL 200 MG/20 ML VIAL IV ONE (12:28)
[2018-04-03] MEDS ORDERED: KETAMINE 500 MG/10 ML VIAL ONE (12:29)
[2018-04-03] MEDS ORDERED: SODIUM CHLORIDE 0.9% 250 ML IV ONE (12:29)
[2018-04-03] MEDS ORDERED: LABETALOL 20 MG/4 ML SYRINGE IV ONE (12:39)
[2018-04-03] MEDS ORDERED: TISSUE ADHESIVE 1 EACH APPLICATOR TOP ONE (12:39)
[2018-04-03] MEDS ORDERED: HYDROCORTISONE 100 MG VIAL IV ONE (13:02)
[2018-04-03] MEDS ORDERED: HYDROCORTISONE 100 MG VIAL ONE (13:03)
[2018-04-03] MEDS: LIDOCAINE 5% PATCH TRANSDERM SCH (13:55)
[2018-04-03] MEDS: MULTIVITAMIN (CENTRUM) TABLET PO SCH ×2 (13:55→14:28)
[2018-04-03] MEDS: PARoxetine 10 MG TABLET PO SCH (14:28)
[2018-04-03] MEDS: CETIRIZINE 10 MG TABLET PO SCH (14:28)
[2018-04-03] MEDS: PANTOPRAZOLE 40 MG TABLET PO SCH (18:50)
[2018-04-03] MEDS: POLYETHYLENE GLYCOL POWDER 17 GM PACK PO SCH (18:58)
[2018-04-03] MEDS: SODIUM CHLORIDE 0.9% 1,000 ML IV SCH (21:09)
[2018-04-03] MEDS: MONTELUKAST 10 MG TABLET PO SCH (21:10)
[2018-04-03] MEDS: traZODone 50 MG TABLET PO SCH (21:24)
[2018-04-04] MEDS: ALBUTEROL/IPRATROPIUM 3 ML NEB RESP TX SCH ×2 (01:48→07:06)
[2018-04-04] MEDS: BUDESONIDE 0.25 MG/2 ML NEB RESP TX SCH (07:06)
[2018-04-04] MEDS ORDERED: predniSONE 20 MG TABLET PO SCH (09:00)
[2018-04-04] MEDS: NITROFURANTOIN MACRO/MONO 100 MG CAPSULE PO SCH (09:01)
[2018-04-04] MEDS: LACTULOSE 20 GM/30 ML UDCUP PO SCH (09:01)
[2018-04-04] MEDS: MULTIVITAMIN (CENTRUM) TABLET PO SCH (09:01)
[2018-04-04] MEDS: CETIRIZINE 10 MG TABLET PO SCH (09:01)
[2018-04-04] MEDS: PANTOPRAZOLE 40 MG TABLET PO SCH (09:02)
[2018-04-04] MEDS: LIDOCAINE 5% PATCH TRANSDERM SCH (09:02)
[2018-04-04] MEDS: BUDESONIDE/FORMOTEROL 160-4.5 INHALER 6 GM INH SCH (09:02)
[2018-04-04 11:37] VITALS: BP 164/85
[2018-04-04] MEDS: PARoxetine 10 MG TABLET PO SCH (11:56)
== END 2018-04-04 15:09 | disposition home health service (06) | DRG 478 ==
LOC: N.ED 15:20 → N.EDINP 15:20 → SUATTDRO 19:44 → N.5E 20:42
PROVIDERS: ADMIT Internal Medicine; ATTEND Internal Medicine